=== PATIENT | female | born 1950 | race Caucasian/White ===

== ENCOUNTER 2023-08-14 11:12 | Inpatient (IN) | payer MEDICARE ==
[2023-08-14 12:02] LABS: #Basophils 0.08 10x3/uL (0.0-0.2); #Eosinphils 0.19 10x3/uL (0.0-0.5); #Monocytes 0.31 10x3/uL (0.0-1.1); #Neutrophils 3.18 10x3/uL (1.5-8.4); %Basophils 1.6 % (0.0-2.0); %Eosinophils 3.8 % (0.0-6.0); %Lymphocytes 24.1 % (18.0-47.0); %Monocytes 6.2 % (0.0-10.0); %Neutrophils 63.9 % (40.0-75.0); Hematocrit 34.7 % (34.9-44.5); Hemoglobin 11.1 g/dL (12.0-15.5); Mean Corpuscular Hemoglobin 22.5 pg (27.0-33.0); Mean Corpuscular Volume 70.2 fL (81.6-98.3); Mean Platelet Volume 8.8 fL (7.4-10.4); Platelet Count 399 10x3/uL (150-450); RBC Distribution Width 19.5 % (11.5-14.5); Red Blood Cell (RBC) Count 4.94 10x6/uL (3.90-5.03)
[2023-08-14 12:16] LABS: PTT 24.4 sec (22.0-33.0); Prothrombin Time 10.5 sec (9.5-12.1)
[2023-08-14 12:18] LABS: ALT (SGPT) 8 U/L (8-55); AST (SGOT) 14 U/L (5-34); Albumin 3.2 g/dL (3.4-4.8); Alkaline Phosphatase 96 U/L (40-110); Anion Gap 11 mmol/L (10-20); BUN (Urea Nitrogen) 12 mg/dL (9.8-20.1); Bilirubin, Total 0.3 mg/dL (0.2-1.2); Calc. Creatinine Clearance 0 mL/min (70-130); Calcium 9.5 mg/dL (7.8-10.44); Carbon Dioxide 27 mmol/L (23-31); Chloride 98 mmol/L (98-107); Estimated GFR 72; Globulin 4.2 g/dL (2.4-3.5); Glucose 88 mg/dL (83-110); Potassium 4.3 mmol/L (3.5-5.1); Protein, Total 7.4 g/dL (5.8-8.1); Sodium 132 mmol/L (136-145)
[2023-08-14] MEDS ORDERED: Vancomycin 1 GM VIAL ONE (12:53)
[2023-08-14 12:54] LABS: Anisocytosis SLIGHT = 6-15 cells (100X) (0-5/hpf); Hypochromia SLIGHT = 6-15 cells (100X) (0-5/hpf); Microcytosis SLIGHT = 6-15 cells (100X) (0-5/hpf); Platelet Adequacy Comment Appears Adequate; Polychromasia SLIGHT = 2-3 cells (100X) (0-2/hpf)
[2023-08-14 13:30] LABS: Bilirubin Neg (Negative); Blood, Urine Negative (Negative); Clarity Clear (Clear); Glucose, Urine (Dipstick) Normal (Negative); Ketone, Urine Negative (Negative); Leukocyte Negative (Negative); Nitrite Negative (Negative); Protein, Urine (Dipstick) Negative (Neg-Trace); Urobilinogen Normal mg/dL (Less than 2)
[2023-08-14 14:10] LABS: Bacteria/HPF None Seen HPF (None Seen); CAUTI Indications for Culture Pelvic or flank pain; RBC/HPF None Seen HPF (0-3); Squamous Epithelial 0-3 HPF (0-3); WBC/HPF None Seen HPF (0-3)
[2023-08-14 14:11] LABS: Urine Culture Reflex No No
[2023-08-14] MEDS ORDERED: Calcium Carbonate 500 MG ChewTAB PO PRN (14:11)
[2023-08-14] MEDS ORDERED: Senokot S 8.6-50 MG TAB PO PRN (14:11)
[2023-08-14] MEDS ORDERED: Acetaminophen 650 MG Suppository PR PRN (14:11)
[2023-08-14] MEDS ORDERED: Ondansetron PF 4 MG/2 ML Vial IVP PRN (14:11)
[2023-08-14] MEDS ORDERED: Ondansetron ODT 4 MG TAB PO PRN (14:11)
[2023-08-14] MEDS ORDERED: Ipratropium/Albuterol 3 ML NEB NEB PRN (14:14)
[2023-08-14] MEDS ORDERED: Electrolyte Replacement Protocol 1 EACH FS SCH (14:30)
[2023-08-14 16:52] VITALS: BMI 20.7
[2023-08-14] MEDS: Gabapentin 100 MG CAP PO SCH ×2 (17:10→20:26)
[2023-08-14] MEDS: Ferrous Sulfate 325 MG TAB PO SCH (17:13)
[2023-08-14] MEDS: Famotidine 20 MG TAB PO SCH (20:25)
[2023-08-15 04:35] LABS: #Basophils 0.04 10x3/uL (0.0-0.2); #Eosinphils 0.15 10x3/uL (0.0-0.5); #Monocytes 0.31 10x3/uL (0.0-1.1); #Neutrophils 3.65 10x3/uL (1.5-8.4); %Basophils 0.8 % (0.0-2.0); %Eosinophils 2.8 % (0.0-6.0); %Lymphocytes 21.1 % (18.0-47.0); %Monocytes 5.9 % (0.0-10.0); %Neutrophils 69.2 % (40.0-75.0); Hematocrit 33.3 % (34.9-44.5); Hemoglobin 10.7 g/dL (12.0-15.5); Mean Corpuscular HGB CONC 32.1 g/dL (32.0-36.0); Mean Corpuscular Hemoglobin 22.5 pg (27.0-33.0); Mean Corpuscular Volume 70.1 fL (81.6-98.3); Mean Platelet Volume 8.7 fL (7.4-10.4); Platelet Count 346 10x3/uL (150-450); Red Blood Cell (RBC) Count 4.75 10x6/uL (3.90-5.03); White Blood Cell (WBC) Count 5.3 10x3/uL (3.5-10.5)
[2023-08-15 04:43] LABS: Anion Gap 10 mmol/L (10-20); BUN (Urea Nitrogen) 9 mg/dL (9.8-20.1); Calc. Creatinine Clearance 51 mL/min (70-130); Calcium 9.1 mg/dL (7.8-10.44); Carbon Dioxide 26 mmol/L (23-31); Chloride 101 mmol/L (98-107); Estimated GFR 72; Glucose 96 mg/dL (83-110); Magnesium 1.9 mg/dL (1.6-2.6); Potassium 4.1 mmol/L (3.5-5.1); Sodium 133 mmol/L (136-145)
[2023-08-15] MEDS: Magnesium 2 GM/50 ML(in water) 2 GM in Premix 1 BAG IVPB SCH (05:54)
[2023-08-15] MEDS: Donepezil HCl 5 MG TAB PO SCH (09:09)
[2023-08-15] MEDS: Lisinopril 20 MG TAB PO SCH (09:10)
[2023-08-15] MEDS: Folic Acid 1 MG TAB PO SCH (09:10)
[2023-08-15] MEDS: Sertraline 100 MG TAB PO SCH (09:10)
[2023-08-15] MEDS ORDERED: Magnevist 469MG/ML 20 ML VIAL ONE (09:53)
[2023-08-15] MEDS ORDERED: Bupivacaine PF 0.5% 30 ML VIAL ONE (12:39)
[2023-08-15] MEDS ORDERED: PROPOFOL 20 ML ONE (12:40)
[2023-08-15] MEDS ORDERED: Ketorolac Tromethamine 30 MG (1 mL) VIAL ONE (12:41)
[2023-08-15] MEDS ORDERED: Ondansetron PF 4 MG/2 ML Vial ONE (12:41)
[2023-08-15] MEDS ORDERED: Lidocaine 2% PF 5 ML VIAL ONE (12:41)
[2023-08-15] MEDS ORDERED: fentaNYL 50 mcg/mL 1 mL Vial ONE (12:41)
[2023-08-15] MEDS ORDERED: Famotidine/PF 20 mg/2ml Vial ONE (12:42)
[2023-08-15] MEDS ORDERED: CEFAZOLIN 2 GM VIAL ONE (13:12)
[2023-08-15] MEDS ORDERED: ePHEDrine Sulfate 50 MG/10 ML VIAL ONE (13:12)
[2023-08-15] MEDS ORDERED: Vancomycin 1 GM/200 ML (FROZEN) BAG IVPB SCH (16:15)
[2023-08-15] MEDS: Vancomycin HCl 500 MG in Sodium Chloride 0.9% 100 ML IVPB SCH (17:03)
[2023-08-15] MEDS: cefTRIAXone\\ROCEPHIN 2 GM in Sodium Chloride 0.9% 100 ML IVPB SCH (22:35)
[2023-08-15] MEDS: metroNIDAZOLE 500 MG TAB PO SCH (22:36)
[2023-08-16 03:50] LABS: #Basophils 0.06 10x3/uL (0.0-0.2); #Eosinphils 0.18 10x3/uL (0.0-0.5); #Monocytes 0.47 10x3/uL (0.0-1.1); %Lymphocytes 20.7 % (18.0-47.0); %Monocytes 7.7 % (0.0-10.0); %Neutrophils 67.3 % (40.0-75.0); Hematocrit 32.1 % (34.9-44.5); Hemoglobin 10.4 g/dL (12.0-15.5); Mean Corpuscular HGB CONC 32.4 g/dL (32.0-36.0); Mean Corpuscular Hemoglobin 22.7 pg (27.0-33.0); Mean Corpuscular Volume 69.9 fL (81.6-98.3); Mean Platelet Volume 8.6 fL (7.4-10.4); Platelet Count 319 10x3/uL (150-450); RBC Distribution Width 19.2 % (11.5-14.5); Red Blood Cell (RBC) Count 4.59 10x6/uL (3.90-5.03); White Blood Cell (WBC) Count 6.1 10x3/uL (3.5-10.5)
[2023-08-16 04:13] LABS: Anion Gap 12 mmol/L (10-20); BUN (Urea Nitrogen) 11 mg/dL (9.8-20.1); Calc. Creatinine Clearance 57 mL/min (70-130); Calcium 8.5 mg/dL (7.8-10.44); Carbon Dioxide 25 mmol/L (23-31); Chloride 103 mmol/L (98-107); Estimated GFR 82; Glucose 106 mg/dL (83-110); Magnesium 2.1 mg/dL (1.6-2.6); Potassium 3.8 mmol/L (3.5-5.1); Sodium 136 mmol/L (136-145); Vancomycin, Random 9.5 ug/mL (See Comment)
[2023-08-16 09:48] VITALS: BMI 20.7
[2023-08-16] MEDS: Vancomycin 1.5 GRAM/300 ML BAG 1.5 GM in Premix 1 BAG IVPB SCH (10:49)
[2023-08-16] MEDS: HYDROcodone/Acetaminophen 5/325 mg Tablet PO PRN (12:26)
[2023-08-16] MEDS ORDERED: SODIUM CHLORIDE 0.9% IVPB SCH (13:00)
[2023-08-16] MEDS ORDERED: VANCOMYCIN IVPB SCH (13:00)
[2023-08-16] MEDS: Docusate 100 MG CAP PO SCH (20:43)
[2023-08-16] MEDS: Nicotine 14 MG PATCH TD PRN (20:44)
[2023-08-16] MEDS: Acetaminophen 325 MG TAB PO PRN (22:31)
[2023-08-17 03:54] LABS: Vancomycin, Random 15.8 ug/mL (See Comment)
[2023-08-17 04:14] LABS: #Basophils 0.04 10x3/uL (0.0-0.2); #Monocytes 0.46 10x3/uL (0.0-1.1); #Neutrophils 4.84 10x3/uL (1.5-8.4); %Basophils 0.6 % (0.0-2.0); %Eosinophils 3.1 % (0.0-6.0); %Lymphocytes 12.9 % (18.0-47.0); %Monocytes 7.2 % (0.0-10.0); %Neutrophils 75.9 % (40.0-75.0); Hematocrit 32.9 % (34.9-44.5); Hemoglobin 10.5 g/dL (12.0-15.5); Mean Corpuscular HGB CONC 31.9 g/dL (32.0-36.0); Mean Corpuscular Hemoglobin 22.8 pg (27.0-33.0); Mean Corpuscular Volume 71.4 fL (81.6-98.3); Platelet Count 337 10x3/uL (150-450); RBC Distribution Width 19.5 % (11.5-14.5); Red Blood Cell (RBC) Count 4.61 10x6/uL (3.90-5.03); White Blood Cell (WBC) Count 6.4 10x3/uL (3.5-10.5)
[2023-08-17] MEDS ORDERED: VANCOMYCIN IVPB SCH (08:00)
[2023-08-17] MEDS ORDERED: SODIUM CHLORIDE 0.9% IVPB SCH (08:00)
[2023-08-18] MEDS: Vancomycin 1 GM in Sodium Chloride 0.9% 250 ML 250 ML IVPB SCH (08:59)
[2023-08-18] MEDS: Clopidogrel Bisulfate 75 MG TAB PO SCH (09:01)
[2023-08-18] MEDS: Cholecalciferol 1,000 UNITS (25 MCG) TAB PO SCH (09:01)
[2023-08-18 13:59] VITALS: BP 142/72; TEMP 98.5
== END 2023-08-18 14:00 | disposition home health service (06) | DRG 504 ==
LOC: CSHERS 11:12 → CSHTELE 14:59
PROVIDERS: ADMIT Family Medicine; ATTEND Family Medicine
PROC: 0Y6T0Z0 Detachment at Right 3rd Toe, Complete, Open Approach (ICD-10-PCS; principal; 2023-08-15)
DX: M86.8X7 Other osteomyelitis, ankle and foot (principal); F02.83 Dementia in other diseases classified elsewhere, unspecified severity, with mood disturbance; F02.84 Dementia in other diseases classified elsewhere, unspecified severity, with anxiety; I10 Essential (primary) hypertension; D50.9 Iron deficiency anemia, unspecified; I25.10 Atherosclerotic heart disease of native coronary artery without angina pectoris; G30.9 Alzheimer's disease, unspecified; M19.90 Unspecified osteoarthritis, unspecified site; I73.9 Peripheral vascular disease, unspecified; F41.9 Anxiety disorder, unspecified; F32.A Depression, unspecified; F17.210 Nicotine dependence, cigarettes, uncomplicated; M06.9 Rheumatoid arthritis, unspecified; Z91.040 Latex allergy status; Z79.899 Other long term (current) drug therapy; Z79.82 Long term (current) use of aspirin; Z79.1 Long term (current) use of non-steroidal anti-inflammatories (NSAID); Z98.51 Tubal ligation status; Z89.422 Acquired absence of other left toe(s); Z71.6 Tobacco abuse counseling
CPT/HCPCS: 36415; 71045; 80048; 80053; 80202; 81001; 83605; 83735; 84100; 85025; 85610; 85730; 86141; 87040; 87070; 87102; 87116; 87205; 87206; 88305; 88311; 93005; 93010; 94760; 96365; 96366; 97139; A9579; C1713; J0665; J0696; J1885; J2001; J2405; J2704; J3010; J3370; J3475; J3490; J7050; S0028

== ENCOUNTER 2023-08-24 09:28 | Outpatient (CLI) | payer MEDICARE | END 2023-08-24 09:29 | disposition home or self-care (01) | LOC: CSHWCC 09:28 | PROVIDERS: ATTEND Nurse Practitioner Family | DX: T81.31XD Disruption of external operation (surgical) wound, not elsewhere classified, subsequent encounter (principal); G30.9 Alzheimer's disease, unspecified; Z72.0 Tobacco use | CPT/HCPCS: 11042; G0463; 99213 ==

== ENCOUNTER 2023-09-07 14:50 | Outpatient (CLI) | payer MEDICARE | END 2023-09-07 14:51 | disposition home or self-care (01) | LOC: CSHWCC 14:50 | PROVIDERS: ATTEND Nurse Practitioner Family | DX: T81.31XD Disruption of external operation (surgical) wound, not elsewhere classified, subsequent encounter (principal); G30.9 Alzheimer's disease, unspecified; Z72.0 Tobacco use | CPT/HCPCS: 11044 ==

== ENCOUNTER 2023-09-20 14:21 | Outpatient (CLI) | payer MEDICARE | END 2023-09-20 14:22 | disposition home or self-care (01) | LOC: CSHWCC 14:21 | PROVIDERS: ATTEND Nurse Practitioner Family | DX: T81.31XD Disruption of external operation (surgical) wound, not elsewhere classified, subsequent encounter (principal); G30.9 Alzheimer's disease, unspecified; Z72.0 Tobacco use | CPT/HCPCS: 11042 ==